=== PATIENT | female | born 1970 | race African-American/Black ===

== ENCOUNTER 2016-03-02 12:56 | Emergency (ER) | payer MEDICAID ==
[2016-03-02 12:56] VITALS: BMI 26.4
[2016-03-02] MEDS ORDERED: SODIUM CHLORIDE 0.9% 10 ML FLUSH FLUSH PRN (13:00)
[2016-03-02] MEDS ORDERED: NS 1,000 ML IV ONE (13:00)
--- NOTE | 2016-03-02 13:02 | EDPRACDOC ---
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 PT CANNOT GIVE HX <Jerry Marie - Last Filed: 03/02/16 14:31> - General Information Information Source: Patient Mode Of Arrival: Ambulance - History of Present Illness Onset: unknown Exact Onset of Symptoms: Unknown HPI: Pt sent from [facility] for abnormal labs. Pt c/o abd pain. Denies fever, n/v, changes in bowel or bladder, cp, sob. Pt seem confused when answering questions. Symptoms Started: Reports: Gradually Symptoms Description: Constant Weakness: Bilateral: Generalized Symptoms: Reports: Weak Symptom Severity: Reports: Bedridden, Unable to performs ADL's <Dariana Sheffield - Last Filed: 03/02/16 17:56> <Hailee Nicolas - Last Filed: 03/02/16 18:14> - General Information Stated Complaint: ABNORMAL LABS Time Seen by Provider: 03/02/16 12:58 Home Medications: Home Medications Aspirin [Ecotrin] 81 mg PO DAILY 02/13/16 Baclofen 10 mg PO TID 02/13/16 Divalproex Sodium [Depakote] 500 mg PO BID 02/13/16 Fluoxetine HCl [Prozac] 20 mg PO 0900 02/13/16 Gabapentin [Neurontin] 300 mg PO TID 02/13/16 Lacosamide [Vimpat] 200 mg PO BID 02/13/16 Lorazepam [Ativan] 0.5 mg TUBE Q6H PRN 02/13/16 Polyethylene Glycol 3350 [Miralax] 17 gm PO DAILY 02/13/16 Polyvinyl Alcohol [Artificial Tears] 1 drop OU .PRN PRN 02/13/16 Quetiapine Fumarate [Seroquel] 25 mg PO BID 02/13/16 Risperidone [Risperdal] 0.5 mg PO HS 02/13/16 Zonisamide 50 mg PO BID 02/13/16 Lorazepam [Ativan] 0.5 mg PO Q6H PRN 03/02/16 Oxycodone Immediate Release [Oxycodone Immediate Release (OxyIR)] 5 mg TUBE Q6H PRN 03/02/16 Warfarin Sodium [Coumadin] 8 mg PO .DAILY SEE COMMENTS 03/02/16 Allergies/Adverse Reactions: Allergies Allergy/AdvReac Type Severity Reaction Status Date / Time levetiracetam [From [facility]] Allergy Unknown Verified 03/02/16 13:43 ED Past Medical History - History Reviewed Yes Nurses notes reviewed and agree except as marked - Patient Medical History Cardiac History: Reports: Coronary Artery Disease, Cardiac Catheterization, Pacemaker, Valvular Heart Disease (RHEUMATIC MITRAL D/S S/P MECHANICAL VALVE REPLACEMENT) Psychological History: Reports: Depression Surgical History: Reports: Cardiac Catheterization, Other (MITRAL VALVE REPAIR) - Social Medical History Smoking Status: Heavy tobacco smoker (5 or more cigarettes/day or daily pipe/ cigar) <Dariana Sheffield - Last Filed: 03/02/16 17:56> EDM Review of Systems - Review of Systems ROS Unobtainable: Yes Review of systems cannot be obtained due to the patient's medical condition Constitutional: Weakness Respiratory: No Symptoms Reported. negative: Cough, Brassy Cough, Barky Cough, Shortness of Breath, Wheezing, Hemoptysis Cardiovascular: No Symptoms Reported. negative: Chest Pain, Palpitations, Syncope, Edema, Orthopnea, PND, Skin Mottling, Cyanosis Gastrointestinal: Pain Genitourinary: No Symptoms Reported. negative: Dysuria, Hematuria, Frequency, Discharge, Bleeding, Testicular Pain, <Dariana Sheffield - Last Filed: 03/02/16 17:56> - Physical Exam Last recorded Vital Signs: Last Vital Signs Temp 98 F 03/02/16 13:05 Pulse 74 03/02/16 14:03 Resp 18 03/02/16 14:03 BP 122/92 03/02/16 14:03 Pulse Ox 100 03/02/16 14:03 Oxygen Pulse Oxygen Saturation 100 O2 Device Room Air Oxygen Flow Rate Fraction of Inspired Oxygen ( FIO2) <Jerry Marie - Last Filed: 03/02/16 14:31> - Physical Exam Constitutional: Somnolent Oriented to: Person Last recorded Vital Signs: Oxygen Pulse Oxygen Saturation O2 Device Oxygen Flow Rate Fraction of Inspired Oxygen ( FIO2) - HEENT Head: Normal ( normocephalic) Eye Exam: Normal (PERRL, EOMI, Sclera white) Oropharynx: Membranes Dry Tympanic Membrane: Normal ENT EAC: Normal Nose: No Symptoms Reported (septum midline) Neck: Normal (FROM, trachea at midline) - Respiratory/Cardiovascular Respiratory: Normal - CTA (BBS clear to auscultation without adventitious sounds ) Cardiovascular: Normal (RRR without murmur, gallop or rub) - GI Auscultation: Normal (NABS) Palpation: Normal (Soft,No rebound or guarding, non distended) Tenderness: Diffuse, Mild - Musculoskeletal Back: Normal (Non-Tender) Extremities: Normal (Normal tone, Pulses 2+ No cyanosis or edema, FROM) - Integumentary Skin: Normal, Warm, Dry Lymphatics: Normal (no adenopathy) - Neurologic Memory Impaired: Unable to Test Motor Function: Unable to Test Cranial Nerve: Unable to Test Cerebellar: Unable to Test <Dariana Sheffield - Last Filed: 03/02/16 17:56> - Physical Exam Last recorded Vital Signs: Last Vital Signs Temp 98 F 03/02/16 13:05 Pulse 69 03/02/16 17:33 Resp 18 03/02/16 17:33 BP 117/81 03/02/16 17:33 Pulse Ox 99 03/02/16 17:33 Oxygen Pulse Oxygen Saturation 99 O2 Device Room Air Oxygen Flow Rate Fraction of Inspired Oxygen ( FIO2) <Hailee Nicolas - Last Filed: 03/02/16 18:14> - Results 03/02/16 13:30 03/02/16 13:30 WBC 6.6 xk/uL (3.8-10.8) 03/02/16 13:30 RBC 4.56 xM/uL (4.20-5.40) 03/02/16 13:30 Hgb 12.3 g/dL (12.0-16.0) 03/02/16 13:30 Hct 37.7 % (36-47) 03/02/16 13:30 MCV 83 fL (81-99) 03/02/16 13:30 MCH 27.1 pg (27-32) 03/02/16 13:30 MCHC 32.7 g/dl (33-36) L 03/02/16 13:30 RDW 18.3 % (11.5-14.5) H 03/02/16 13:30 Plt Count 270 xk/uL (130-400) 03/02/16 13:30 MPV 9.3 fL (7.4-10.4) 03/02/16 13:30 Neut % (Auto) 52.4 % (45-76) 03/02/16 13:30 Lymph % (Auto) 30.2 % (17-44) 03/02/16 13:30 [place] % (Auto) 13.0 % (3-10) H 03/02/16 13:30 Eos % (Auto) 3.3 % (0-5) 03/02/16 13:30 Baso % (Auto) 1.1 % (0-2) 03/02/16 13:30 Absolute Neuts (auto) 3.43 xk/uL (1.7-8.2) 03/02/16 13:30 Absolute Lymphs (auto) 1.98 xk/uL (0.65-4.75) 03/02/16 13:30 Lactic Acid 2.0 mEq/L (0.7-2.1) 03/02/16 13:30 Urine Color Yellow 03/02/16 14:07 Urine Clarity Clear 03/02/16 14:07 Urine pH 7.0 (5.0-8.0) 03/02/16 14:07 Ur Specific [place] 1.005 (1.003-1.035) 03/02/16 14:07 Urine Protein Neg (NEG/TRACE) 03/02/16 14:07 Urine Glucose (UA) Neg (NEGATIVE) 03/02/16 14:07 Urine Ketones Neg (NEGATIVE) 03/02/16 14:07 Urine Occult Blood Neg (NEG/TRACE) 03/02/16 14:07 Urine Nitrite Neg (NEGATIVE) 03/02/16 14:07 Urine Bilirubin Neg (NEGATIVE) 03/02/16 14:07 Urine Urobilinogen 2 MG/DL (0-1) H 03/02/16 14:07 Ur Leukocyte Esterase Trace (NEGATIVE) H 03/02/16 14:07 Urine RBC 0-2 (0-5) 03/02/16 14:07 Urine WBC 2-5 (0-5) 03/02/16 14:07 Ur Epithelial Cells Occ 03/02/16 14:07 Urine Mucus Occ (NEG/OCC) 03/02/16 14:07 Lab Results 03/02/16 03/02/16 03/02/16 14:07 13:30 13:30 WBC 6.6 RBC 4.56 Hgb 12.3 Hct 37.7 MCV 83 MCH 27.1 MCHC 32.7 L RDW 18.3 H Plt Count 270 MPV 9.3 Neut % (Auto) 52.4 Lymph % (Auto) 30.2 [place] % (Auto) 13.0 H Eos % (Auto) 3.3 Baso % (Auto) 1.1 Absolute Neuts (auto) 3.43 Absolute Lymphs (auto) 1.98 Lactic Acid 2.0 Urine Color Yellow Urine Clarity Clear Urine pH 7.0 Ur Specific [place] 1.005 Urine Protein Neg Urine Glucose (UA) Neg Urine Ketones Neg Urine Occult Blood Neg Urine Nitrite Neg Urine Bilirubin Neg Urine Urobilinogen 2 H Ur Leukocyte Esterase Trace H Urine RBC 0-2 Urine WBC 2-5 Ur Epithelial Cells Occ Urine Mucus Occ <Jerry Marie - Last Filed: 03/02/16 14:31> - Differential Diagnosis Anemia, Dehydration, Dysrhythmia, Electrolyte disorder, Hypoglycemia - Results 03/02/16 13:30 03/02/16 13:30 - EKG EKG #1 EKG Time: 13:05 Rate: bpm: 71 [place]: Normal Rhythm: NSR Block: None ST: Normal - Diagnostic Imaging Chest Image interpreted by: Radiologist IMPRESSION: Hypoinflation without acute cardiopulmonary disease. Abdomen Image interpreted by: Radiologist IMPRESSION: Contracted gallbladder with probable mild adenomyosis will. No definite gallstones identified. No evidence of biliary ductal dilatation. 3 cm hypoechoic mass in posterior right hepatic lobe. Differential diagnosis includes focal fatty sparing as well as hepatic neoplasm. Consider abdomen MRI without and with contrast for further characterization. CT: IMPRESSION: Percutaneous gastrostomy tube in adequate position. Possible mild gastric wall edema which may be seen with gastritis. 6 mm gallstone. No additional CT evidence to suggest cholecystitis. 2.4 cm well-defined oval hyperdense mass over the right lobe of the liver. This may represent an atypical hemangioma, adenoma, FNH or less likely malignancy. Recommend MRI of the abdomen on elective basis for further evaluation. <Dariana Sheffield - Last Filed: 03/02/16 17:56> - Results 03/02/16 13:30 03/02/16 13:30 WBC 6.6 xk/uL (3.8-10.8) 03/02/16 13:30 RBC 4.56 xM/uL (4.20-5.40) 03/02/16 13:30 Hgb 12.3 g/dL (12.0-16.0) 03/02/16 13:30 Hct 37.7 % (36-47) 03/02/16 13:30 MCV 83 fL (81-99) 03/02/16 13:30 MCH 27.1 pg (27-32) 03/02/16 13:30 MCHC 32.7 g/dl (33-36) L 03/02/16 13:30 RDW 18.3 % (11.5-14.5) H 03/02/16 13:30 Plt Count 270 xk/uL (130-400) 03/02/16 13:30 MPV 9.3 fL (7.4-10.4) 03/02/16 13:30 Neut % (Auto) 52.4 % (45-76) 03/02/16 13:30 Lymph % (Auto) 30.2 % (17-44) 03/02/16 13:30 [place] % (Auto) 13.0 % (3-10) H 03/02/16 13:30 Eos % (Auto) 3.3 % (0-5) 03/02/16 13:30 Baso % (Auto) 1.1 % (0-2) 03/02/16 13:30 Absolute Neuts (auto) 3.43 xk/uL (1.7-8.2) 03/02/16 13:30 Absolute Lymphs (auto) 1.98 xk/uL (0.65-4.75) 03/02/16 13:30 PT 112.8 SEC (9.2-11.2) H 03/02/16 13:30 INR 10.7 H* 03/02/16 13:30 APTT 70.2 SEC (22-35) H 03/02/16 13:30 Sodium 141 mEq/L (137-146) 03/02/16 13:30 Potassium 4.9 mEq/L (3.5-5.1) 03/02/16 13:30 Chloride 103 mEq/L (98-107) 03/02/16 13:30 Carbon Dioxide 28 mMOL/L (22-33) 03/02/16 13:30 Anion Gap 15 mEq/L (8-16) 03/02/16 13:30 BUN 10 MG/DL (7-17) 03/02/16 13:30 Creatinine 0.60 MG/DL (0.52-1.04) 03/02/16 13:30 Estimated GFR (MDRD) > 60 mL/min (>=60) 03/02/16 13:30 Glucose 82 MG/DL (70-99) 03/02/16 13:30 Calculated Osmolality 269 MOs/Kg (270-290) L 03/02/16 13:30 Lactic Acid 2.0 mEq/L (0.7-2.1) 03/02/16 13:30 Calcium 9.5 MG/DL (8.4-10.2) 03/02/16 13:30 Corrected Calcium 9.7 MG/DL (8.4-10.2) 03/02/16 13:30 Total Bilirubin 1.5 MG/DL (0.2-1.3) H 03/02/16 13:30 AST 1207 IU/L (14-36) H 03/02/16 13:30 ALT 1659 IU/L (9-52) H 03/02/16 13:30 Alkaline Phosphatase 658 IU/L (38-126) H 03/02/16 13:30 Creatine Kinase 141 IU/L (30-134) H 03/02/16 13:30 CK-MB (CK-2) 0.9 ng/mL (0-4.5) 03/02/16 13:30 Troponin I 0.01 ng/mL (<.04) 03/02/16 16:48 Total Protein 8.2 G/DL (6.3-8.2) 03/02/16 13:30 Albumin 3.8 G/DL (3.5-5.0) 03/02/16 13:30 Lipase 61 U/L (23-300) 03/02/16 13:30 Urine Color Yellow 03/02/16 14:07 Urine Clarity Clear 03/02/16 14:07 Urine pH 7.0 (5.0-8.0) 03/02/16 14:07 Ur Specific [place] 1.005 (1.003-1.035) 03/02/16 14:07 Urine Protein Neg (NEG/TRACE) 03/02/16 14:07 Urine Glucose (UA) Neg (NEGATIVE) 03/02/16 14:07 Urine Ketones Neg (NEGATIVE) 03/02/16 14:07 Urine Occult Blood Neg (NEG/TRACE) 03/02/16 14:07 Urine Nitrite Neg (NEGATIVE) 03/02/16 14:07 Urine Bilirubin Neg (NEGATIVE) 03/02/16 14:07 Urine Urobilinogen 2 MG/DL (0-1) H 03/02/16 14:07 Ur Leukocyte Esterase Trace (NEGATIVE) H 03/02/16 14:07 Urine RBC 0-2 (0-5) 03/02/16 14:07 Urine WBC 2-5 (0-5) 03/02/16 14:07 Ur Epithelial Cells Occ 03/02/16 14:07 Urine Mucus Occ (NEG/OCC) 03/02/16 14:07 Valproic Acid 91.0 MCG/ML (50-100) 03/02/16 13:30 Lab Results 03/02/16 03/02/16 03/02/16 16:48 14:07 13:30 WBC RBC Hgb Hct MCV MCH MCHC RDW Plt Count MPV Neut % (Auto) Lymph % (Auto) [place] % (Auto) Eos % (Auto) Baso % (Auto) Absolute Neuts (auto) Absolute Lymphs (auto) PT INR APTT Sodium Potassium Chloride Carbon Dioxide Anion Gap BUN Creatinine Estimated GFR (MDRD) Glucose Calculated Osmolality Lactic Acid Calcium Corrected Calcium Total Bilirubin AST ALT Alkaline Phosphatase Creatine Kinase CK-MB (CK-2) Troponin I 0.01 Total Protein Albumin Lipase Urine Color Yellow Urine Clarity Clear Urine pH 7.0 Ur Specific [place] 1.005 Urine Protein Neg Urine Glucose (UA) Neg Urine Ketones Neg Urine Occult Blood Neg Urine Nitrite Neg Urine Bilirubin Neg Urine Urobilinogen 2 H Ur Leukocyte Esterase Trace H Urine RBC 0-2 Urine WBC 2-5 Ur Epithelial Cells Occ Urine Mucus Occ Valproic Acid 91.0 03/02/16 03/02/16 03/02/16 13:30 13:30 13:30 WBC 6.6 RBC 4.56 Hgb 12.3 Hct 37.7 MCV 83 MCH 27.1 MCHC 32.7 L RDW 18.3 H Plt Count 270 MPV 9.3 Neut % (Auto) 52.4 Lymph % (Auto) 30.2 [place] % (Auto) 13.0 H Eos % (Auto) 3.3 Baso % (Auto) 1.1 Absolute Neuts (auto) 3.43 Absolute Lymphs (auto) 1.98 PT 112.8 H INR 10.7 H* APTT 70.2 H Sodium Potassium Chloride Carbon Dioxide Anion Gap BUN Creatinine Estimated GFR (MDRD) Glucose Calculated Osmolality Lactic Acid 2.0 Calcium Corrected Calcium Total Bilirubin AST ALT Alkaline Phosphatase Creatine Kinase CK-MB (CK-2) Troponin I Total Protein Albumin Lipase Urine Color Urine Clarity Urine pH Ur Specific [place] Urine Protein Urine Glucose (UA) Urine Ketones Urine Occult Blood Urine Nitrite Urine Bilirubin Urine Urobilinogen Ur Leukocyte Esterase Urine RBC Urine WBC Ur Epithelial Cells Urine Mucus Valproic Acid 03/02/16 13:30 WBC RBC Hgb Hct MCV MCH MCHC RDW Plt Count MPV Neut % (Auto) Lymph % (Auto) [place] % (Auto) Eos % (Auto) Baso % (Auto) Absolute Neuts (auto) Absolute Lymphs (auto) PT INR APTT Sodium 141 Potassium 4.9 Chloride 103 Carbon Dioxide 28 Anion Gap 15 BUN 10 Creatinine 0.60 Estimated GFR (MDRD) > 60 Glucose 82 Calculated Osmolality 269 L Lactic Acid Calcium 9.5 Corrected Calcium 9.7 Total Bilirubin 1.5 H AST 1207 H ALT 1659 H Alkaline Phosphatase 658 H Creatine Kinase 141 H CK-MB (CK-2) 0.9 Troponin I 0.01 Total Protein 8.2 Albumin 3.8 Lipase 61 Urine Color Urine Clarity Urine pH Ur Specific [place] Urine Protein Urine Glucose (UA) Urine Ketones Urine Occult Blood Urine Nitrite Urine Bilirubin Urine Urobilinogen Ur Leukocyte Esterase Urine RBC Urine WBC Ur Epithelial Cells Urine Mucus Valproic Acid <Hailee Nicolas - Last Filed: 03/02/16 18:14> <Jerry Marie - Last Filed: 03/02/16 14:31> Decision Time to Discharge: 17:56 - Departure Disposition: Home Education/Counseling Given To: Patient, Family Member Education/Counseling Given Regarding: Diagnosis, Treatment, Follow Up <Dariana Sheffield - Last Filed: 03/02/16 17:56> <Hailee Nicolas - Last Filed: 03/02/16 18:14> - Departure Condition: Stable Final Diagnosis: Supratherapeutic INR, Liver mass, right lobe, Elevated liver enzymes Instructions: Elevated INR (ED), Acute Abdominal Pain (ED) Referrals: Carloz Jones MD [Primary Care Provider] - One Week Additional Instructions: Hold Coumadin x 2 days. Follow up with Personal MD for further evaluation of liver mass. Return for worse or different symptoms.
[2016-03-02 13:40] VITALS: TEMP 98
[2016-03-02 13:48] LABS: AUTOMATED BASOPHIL 1.1 % (0-2); AUTOMATED EOSINOPHIL 3.3 % (0-5); AUTOMATED LYMPH 30.2 % (17-44); AUTOMATED NEUTROPHIL 52.4 % (45-76); MPV 9.3 fL (7.4-10.4)
[2016-03-02 13:57] LABS: BLOOD UREA NITROGEN 10 MG/DL (7-17); CALC CORRECTED 9.7 MG/DL (8.4-10.2); CALCIUM 9.5 MG/DL (8.4-10.2); CALCULATED OSMOLALITY 269 MOs/Kg (270-290); CHLORIDE 103 mEq/L (98-107); CPK TOTAL WITH POSSIBLE MB 141 IU/L (30-134); GLUCOSE 82 MG/DL (70-99); SODIUM LEVEL 141 mEq/L (137-146); TOTAL PROTEIN 8.2 G/DL (6.3-8.2)
--- NOTE | 2016-03-02 14:00 | DIRPT ---
CLINICAL DATA: Sepsis. Abdominal pain. Altered mental status. EXAM: PORTABLE CHEST 1 VIEW COMPARISON: 07/07/2015 FINDINGS: Left-sided pacemaker and prosthetic heart valve unchanged. Lungs are hypoinflated without consolidation or effusion. Cardiomediastinal silhouette is within normal. Suggestion of a gastrostomy tube over the left mid abdomen. Remainder of the exam is unchanged. IMPRESSION: Hypoinflation without acute cardiopulmonary disease. Electronically Signed By: Gomez Cisneros M.D. On: 03/02/2016 13:58
[2016-03-02 14:10] LABS: PARTIAL THROMB. TIME 70.2 SEC (22-35)
[2016-03-02 14:23] LABS: LEUKOCYTES/URINE TRACE (NEGATIVE); NITRITE/URINE NEG (NEGATIVE); RBC/URINE 0-2 (0-5); URINE OCCULT BLOOD NEG (NEG/TRACE)
[2016-03-02 14:36] LABS: PT-INR 10.7
[2016-03-02 14:53] LABS: CPKMB 0.9 ng/mL (0-4.5)
[2016-03-02] MEDS ORDERED: PHYTONADIONE 10 MG in NS 50 ML IV ONE (15:00)
--- NOTE | 2016-03-02 15:58 | DIRPT ---
CLINICAL DATA: Right upper quadrant pain for 1 month. EXAM: US ABDOMEN LIMITED - RIGHT UPPER QUADRANT COMPARISON: None. FINDINGS: Gallbladder: Contracted and and wall thickness measuring 4 mm. Several tiny echogenic foci seen with gallbladder wall near the neck, suspicious for adenomyosis. No evidence of gallbladder dilatation or pericholecystic fluid. No sonographic Luong's sign noted by manager flight. Common bile duct: Diameter: 4 mm, within normal limits. Liver: A hypoechoic mass is seen in the posterior right hepatic lobe measuring approximately 3.1 x 1.8 x 2.6 cm. This is nonspecific, and differential diagnosis includes focal fatty sparing as well as hepatic neoplasm. IMPRESSION: Contracted gallbladder with probable mild adenomyosis will. No definite gallstones identified. No evidence of biliary ductal dilatation. 3 cm hypoechoic mass in posterior right hepatic lobe. Differential diagnosis includes focal fatty sparing as well as hepatic neoplasm. Consider abdomen MRI without and with contrast for further characterization. Electronically Signed By: Sriram Garcia M.D. On: 03/02/2016 15:56
[2016-03-02] MEDS ORDERED: Pharmacy Review for Metformin - IV Contrast Given SCH (16:00)
[2016-03-02 17:34] VITALS: PULSE 69
--- NOTE | 2016-03-02 17:54 | DIRPT ---
CLINICAL DATA: Abnormal gallbladder ultrasound with elevated LFTs. Right upper quadrant pain. EXAM: CT ABDOMEN AND PELVIS WITH CONTRAST TECHNIQUE: Multidetector CT imaging of the abdomen and pelvis was performed using the standard protocol following bolus administration of intravenous contrast. CONTRAST: 100 mL Isovue 370 IV. COMPARISON: Right upper quadrant ultrasound 03/02/[address] 08/03/2014 FINDINGS: Lung bases are within normal. There is mild cardiomegaly. Pacemaker leads present over the heart as well as evidence of prosthetic mitral valve. Abdominal images demonstrate single 6 mm dependent density within the gallbladder likely a stone. No adjacent inflammatory changes. Pancreas is within normal. There is a well-defined oval 2.4 cm hyperdense mass over the posterior segment of the right lobe of the liver as this was noted to be hypoechoic by ultrasound. Remainder of the liver is within normal. The spleen and adrenal glands are within normal. Percutaneous gastrostomy tube is in adequate position. Also mild edema of the gastric wall. Kidneys are normal size without hydronephrosis or nephrolithiasis. There is mild calcified plaque over the abdominal aorta and iliac arteries. Appendix is normal. Mild to moderate fecal retention throughout the colon. Small bowel is within normal. Mesentery is normal. There is no free fluid or free peritoneal air. Few small periaortic lymph nodes with the largest measuring 9 mm in the left periaortic region. Pelvic images demonstrate the bladder, uterus, ovaries and rectum to be within normal. No free pelvic fluid. Bones and soft tissues unremarkable. IMPRESSION: Percutaneous gastrostomy tube in adequate position. Possible mild gastric wall edema which may be seen with gastritis. 6 mm gallstone. No additional CT evidence to suggest cholecystitis. 2.4 cm well-defined oval hyperdense mass over the right lobe of the liver. This may represent an atypical hemangioma, adenoma, FNH or less likely malignancy. Recommend MRI of the abdomen on elective basis for further evaluation. Electronically Signed By: Gomez Cisneros M.D. On: 03/02/2016 17:51
[2016-03-02 18:30] VITALS: BP 127/79
== END 2016-03-02 18:58 | disposition home or self-care (01) ==
LOC: ED 12:56
DX: R74.8 Abnormal levels of other serum enzymes (principal); Z79.01 Long term (current) use of anticoagulants; R16.0 Hepatomegaly, not elsewhere classified; I25.10 Atherosclerotic heart disease of native coronary artery without angina pectoris; F32.9 Major depressive disorder, single episode, unspecified; F17.200 Nicotine dependence, unspecified, uncomplicated; Z95.2 Presence of prosthetic heart valve; Z95.0 Presence of cardiac pacemaker; Z79.899 Other long term (current) drug therapy
CPT/HCPCS: 36415; 71010; 74177; 76705; 80053; 80074; 80164; 81001; 82550; 82553; 83605; 83690; 84484; 85025; 85610; 85730; 87040; 87086; 93005; 96361; 96365; 99284; A9698; J3430; J7030

== ENCOUNTER 2016-03-06 19:07 | Observation (INO) | payer MEDICAID ==
[2016-03-06 19:08] VITALS: BMI 26.4
[2016-03-06 19:52] LABS: AUTOMATED BASOPHIL 1.6 % (0-2); AUTOMATED LYMPH 30.6 % (17-44); AUTOMATED MONOCYTE 11.6 % (3-10); AUTOMATED NEUTROPHIL 54.2 % (45-76); MPV 9.6 fL (7.4-10.4)
[2016-03-06 20:01] LABS: PARTIAL THROMB. TIME 29.1 SEC (22-35); PT-INR 1.4
[2016-03-06 20:04] LABS: BLOOD UREA NITROGEN 16 MG/DL (7-17); CALCIUM 9.4 MG/DL (8.4-10.2); CALCULATED OSMOLALITY 266 MOs/Kg (270-290); CHLORIDE 102 mEq/L (98-107); GLUCOSE 87 MG/DL (70-99); SODIUM LEVEL 138 mEq/L (137-146)
--- NOTE | 2016-03-06 20:24 | DIRPT ---
CLINICAL DATA: Unwitnessed fall. EXAM: CHEST 2 VIEW COMPARISON: 03/02/2016 FINDINGS: Left pacer remains in place, unchanged. Prior valve replacement. Mild cardiomegaly. No confluent opacities, effusions or edema. No acute bony abnormality. IMPRESSION: Cardiomegaly. No active disease. Electronically Signed By: Saúl Mccoy M.D. On: 03/06/2016 20:21
--- NOTE | 2016-03-06 20:24 | DIRPT ---
CLINICAL DATA: Pain following fall EXAM: PELVIS - 1-2 VIEW COMPARISON: None. FINDINGS: There is no evidence of pelvic fracture or dislocation. Joint spaces appear intact. No erosive change. IMPRESSION: No fracture or dislocation. No apparent arthropathy. Electronically Signed By: Murtaza Irby III, M.D. On: 03/06/2016 20:22
--- NOTE | 2016-03-06 20:34 | EDPRACDOC ---
[id number] - History of Present Illness Onset: today Exact Onset of Symptoms: Unknown HPI: PT PRESENTS WITH PERSISTENT ALTERED MENTAL STATUS SINCE YESTERDAY. HAD SEIZURE YESTERDAY MORNING AND GIVEN ATIVAN TO STOP IT. SINCE SHE HAS BEEN ALTERED. RECENTLY SHE WAS SEEN IN ER FOR LAB ABNORMALITIES WITH MARKEDLY ELEVATED INR AND LIVER ENZYMES. FAMILY AT BEDSIDE REPORTS SHE IS USUALLY ABLE TO CONVERSE SOME BUT HAS BEEN NONVERBAL SINCE YESTERDAY. Symptoms Currently: Reports: Still Present Altered Quality: Reports: Decreased Alertness, Change in Behavior Altered Severity: Reports: Moderate, Unable to care for self <Dean Mon - Last Filed: 03/09/16 22:17> - General Information Chief Complaint: Altered Mental Status Stated Complaint: AMS Time Seen by Provider: 03/06/16 19:26 Home Medications: Home Medications Aspirin [Ecotrin] 81 mg PO DAILY 02/13/16 Baclofen 10 mg PO TID 02/13/16 Divalproex Sodium [Depakote] 500 mg PO BID 02/13/16 Fluoxetine HCl [Prozac] 20 mg PO 0900 02/13/16 Gabapentin [Neurontin] 300 mg PO TID 02/13/16 Lacosamide [Vimpat] 200 mg PO BID 02/13/16 Lorazepam [Ativan] 0.5 mg TUBE Q6H PRN 02/13/16 Polyethylene Glycol 3350 [Miralax] 17 gm PO DAILY 02/13/16 Polyvinyl Alcohol [Artificial Tears] 1 drop OU .PRN PRN 02/13/16 Quetiapine Fumarate [Seroquel] 25 mg PO BID 02/13/16 Risperidone [Risperdal] 0.5 mg PO HS 02/13/16 Zonisamide 50 mg PO BID 02/13/16 Lorazepam [Ativan] 0.5 mg PO Q6H PRN 03/02/16 Oxycodone Immediate Release [Oxycodone Immediate Release (OxyIR)] 5 mg TUBE Q6H PRN 03/02/16 Warfarin Sodium [Coumadin] 8 mg PO .DAILY SEE COMMENTS 03/02/16 Allergies/Adverse Reactions: Allergies Allergy/AdvReac Type Severity Reaction Status Date / Time levetiracetam [From 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 No <Dean Mon - Last Filed: 03/09/16 22:17> ED Past Medical History - History Reviewed Yes Nurses notes reviewed and agree except as marked - Patient Medical History Neurological History: Reports: Seizures Cardiac History: Reports: Coronary Artery Disease, Cardiac Catheterization, Pacemaker, Valvular Heart Disease (RHEUMATIC MITRAL D/S S/P MECHANICAL VALVE REPLACEMENT) Psychological History: Reports: Depression Surgical History: Reports: Cardiac Catheterization, Other (MITRAL VALVE REPAIR) Comment Only: Hysterectomy (unknown) - Social Medical History Smoking Status: Current status unknown Lives In: Group Home Facility <Dean Mon - Last Filed: 03/09/16 22:17> EDM Review of Systems - Review of Systems ROS Unobtainable: Yes Review of systems cannot be obtained due to the patient's medical condition <Dean Mon - Last Filed: 03/09/16 22:17> - Physical Exam Last recorded Vital Signs: Last Vital Signs Temp 98.0 F 03/08/16 07:25 Pulse 72 03/08/16 07:25 Resp 18 03/08/16 07:25 BP 103/75 03/08/16 07:25 Pulse Ox 99 03/08/16 07:25 Oxygen Pulse Oxygen Saturation 100 O2 Device Room Air Oxygen Flow Rate Fraction of Inspired Oxygen ( FIO2) <Hailee Nicolas - Last Filed: 03/08/16 10:41> - Physical Exam Constitutional: Other (ABLE TO FOLLOW WITH EYES BUT REMAINS NONVERBAL AND NONCOMMUNICATIVE.) Oriented to: Unable to Test Last recorded Vital Signs: Last Vital Signs Temp 98.5 F 03/06/16 19:12 Pulse 72 03/06/16 19:47 Resp 20 03/06/16 19:47 BP 112/75 03/06/16 19:47 Pulse Ox 97 03/06/16 19:47 Oxygen Pulse Oxygen Saturation 97 O2 Device Room Air Oxygen Flow Rate Fraction of Inspired Oxygen ( FIO2) - HEENT Head: negative: Deformity, Laceration Eye Exam: negative: Conjunctival Injection, Pale Conjunctiva Oropharynx: negative: Membranes Dry Nose: negative: Congestion, Discharge Neck: negative: Limited ROM - Respiratory/Cardiovascular Respiratory: Normal - CTA. negative: Accessory Muscle Use, Diminished, Tachypnea Cardiovascular: negative: Bradycardia, Tachycardia, Irregular - GI Auscultation: Normal Palpation: Normal Tenderness: Non tender - Musculoskeletal Extremities: Radial Pulse (PALPABLE) - Integumentary Skin: Warm, Dry. negative: Rash - Neurologic Memory Impaired: Unable to Test Motor Function: Unable to Test <ElieserKareemDean C - Last Filed: 03/09/16 22:17> - Results 03/08/16 06:32 03/08/16 06:32 WBC 5.2 xk/uL (3.8-10.8) 03/08/16 06:32 RBC 4.40 xM/uL (4.20-5.40) 03/08/16 06:32 Hgb 11.9 g/dL (12.0-16.0) L 03/08/16 06:32 Hct 36.4 % (36-47) 03/08/16 06:32 MCV 83 fL (81-99) 03/08/16 06:32 MCH 27.1 pg (27-32) 03/08/16 06:32 MCHC 32.8 g/dl (33-36) L 03/08/16 06:32 RDW 19.2 % (11.5-14.5) H 03/08/16 06:32 Plt Count 219 xk/uL (130-400) 03/08/16 06:32 MPV 9.0 fL (7.4-10.4) 03/08/16 06:32 Neut % (Auto) 43.3 % (45-76) L 03/08/16 06:32 Lymph % (Auto) 36.0 % (17-44) 03/08/16 06:32 [place] % (Auto) 15.6 % (3-10) H 03/08/16 06:32 Eos % (Auto) 4.2 % (0-5) 03/08/16 06:32 Baso % (Auto) 0.9 % (0-2) 03/08/16 06:32 Absolute Neuts (auto) 2.24 xk/uL (1.7-8.2) 03/08/16 06:32 Absolute Lymphs (auto) 1.87 xk/uL (0.65-4.75) 03/08/16 06:32 PT 16.6 SEC (9.2-11.2) H 03/08/16 06:32 INR 1.6 03/08/16 06:32 APTT 32.9 SEC (22-35) 03/08/16 06:32 Sodium 140 mEq/L (137-146) 03/08/16 06:32 Potassium 4.1 mEq/L (3.5-5.1) 03/08/16 06:32 Chloride 105 mEq/L (98-107) 03/08/16 06:32 Carbon Dioxide 26 mMOL/L (22-33) 03/08/16 06:32 Anion Gap 13 mEq/L (8-16) 03/08/16 06:32 BUN 10 MG/DL (7-17) 03/08/16 06:32 Creatinine 0.70 MG/DL (0.52-1.04) 03/08/16 06:32 Estimated GFR (MDRD) > 60 mL/min (>=60) 03/08/16 06:32 Glucose 93 MG/DL (70-99) 03/08/16 06:32 Calculated Osmolality 268 MOs/Kg (270-290) L 03/08/16 06:32 Calcium 9.4 MG/DL (8.4-10.2) 03/08/16 06:32 Corrected Calcium 10.2 MG/DL (8.4-10.2) 03/08/16 06:32 Total Bilirubin 5.5 MG/DL (0.2-1.3) H 03/08/16 06:32 AST 1336 IU/L (14-36) H 03/08/16 06:32 ALT 1502 IU/L (9-52) H 03/08/16 06:32 Alkaline Phosphatase 640 IU/L (38-126) H 03/08/16 06:32 Ammonia 23.0 umol/L (9.0-30.0) 03/06/16 20:40 Troponin I < 0.01 ng/mL (<.04) 03/07/16 01:01 Total Protein 7.5 G/DL (6.3-8.2) 03/08/16 06:32 Albumin 3.2 G/DL (3.5-5.0) L 03/08/16 06:32 Lipase 78 U/L (23-300) 03/08/16 06:32 Urine Color Bright yellow 03/07/16 01:35 Urine Clarity Sl hzy 03/07/16 01:35 Urine pH 6.0 (5.0-8.0) 03/07/16 01:35 Ur Specific [place] 1.020 03/07/16 01:35 Urine Protein Neg (NEG/TRACE) 03/07/16 01:35 Urine Glucose (UA) Neg (NEGATIVE) 03/07/16 01:35 Urine Ketones Neg (NEGATIVE) 03/07/16 01:35 Urine Occult Blood Neg (NEG/TRACE) 03/07/16 01:35 Urine Nitrite Neg (NEGATIVE) 03/07/16 01:35 Urine Bilirubin 2+ (NEGATIVE) H 03/07/16 01:35 Urine Urobilinogen 8 MG/DL (0-1) H 03/07/16 01:35 Ur Leukocyte Esterase Neg (NEGATIVE) 03/07/16 01:35 Urine RBC 0-2 (0-5) 03/07/16 01:35 Urine WBC 2-5 (0-5) 03/07/16 01:35 Ur Epithelial Cells Occ 03/07/16 01:35 Urine Bacteria Few (NEG/FEW) 03/07/16 01:35 Urine Mucus Sm amt (NEG/OCC) 03/07/16 01:35 Lab Results 03/08/16 03/08/16 03/08/16 06:32 06:32 06:32 WBC 5.2 RBC 4.40 Hgb 11.9 L Hct 36.4 MCV 83 MCH 27.1 MCHC 32.8 L RDW 19.2 H Plt Count 219 MPV 9.0 Neut % (Auto) 43.3 L Lymph % (Auto) 36.0 [place] % (Auto) 15.6 H Eos % (Auto) 4.2 Baso % (Auto) 0.9 Absolute Neuts (auto) 2.24 Absolute Lymphs (auto) 1.87 PT 16.6 H INR 1.6 APTT 32.9 Sodium 140 Potassium 4.1 Chloride 105 Carbon Dioxide 26 Anion Gap 13 BUN 10 Creatinine 0.70 Estimated GFR (MDRD) > 60 Glucose 93 Calculated Osmolality 268 L Calcium 9.4 Corrected Calcium 10.2 Total Bilirubin 5.5 H AST 1336 H ALT 1502 H Alkaline Phosphatase 640 H Ammonia Troponin I Total Protein 7.5 Albumin 3.2 L Lipase 78 Urine Color Urine Clarity Urine pH Ur Specific [place] Urine Protein Urine Glucose (UA) Urine Ketones Urine Occult Blood Urine Nitrite Urine Bilirubin Urine Urobilinogen Ur Leukocyte Esterase Urine RBC Urine WBC Ur Epithelial Cells Urine Bacteria Urine Mucus 03/07/16 03/07/16 03/07/16 05:34 05:34 01:35 WBC 4.8 RBC 4.28 Hgb 11.8 L Hct 35.5 L MCV 83 MCH 27.7 MCHC 33.4 RDW 19.4 H Plt Count 252 MPV 9.1 Neut % (Auto) Lymph % (Auto) [place] % (Auto) Eos % (Auto) Baso % (Auto) Absolute Neuts (auto) Absolute Lymphs (auto) PT INR APTT Sodium 140 Potassium 4.6 Chloride 105 Carbon Dioxide 25 Anion Gap 15 BUN 14 Creatinine 0.70 Estimated GFR (MDRD) > 60 Glucose 72 Calculated Osmolality 269 L Calcium 9.6 Corrected Calcium 10.1 Total Bilirubin 6.4 H AST 1708 H ALT 1763 H Alkaline Phosphatase 725 H Ammonia Troponin I Total Protein 8.1 Albumin 3.5 Lipase Urine Color Bright yellow Urine Clarity Sl hzy Urine pH 6.0 Ur Specific [place] 1.020 Urine Protein Neg Urine Glucose (UA) Neg Urine Ketones Neg Urine Occult Blood Neg Urine Nitrite Neg Urine Bilirubin 2+ H Urine Urobilinogen 8 H Ur Leukocyte Esterase Neg Urine RBC 0-2 Urine WBC 2-5 Ur Epithelial Cells Occ Urine Bacteria Few Urine Mucus Sm amt 03/07/16 03/06/16 03/06/16 01:01 22:15 20:40 WBC RBC Hgb Hct MCV MCH MCHC RDW Plt Count MPV Neut % (Auto) Lymph % (Auto) [place] % (Auto) Eos % (Auto) Baso % (Auto) Absolute Neuts (auto) Absolute Lymphs (auto) PT INR APTT Sodium Potassium Chloride Carbon Dioxide Anion Gap BUN Creatinine Estimated GFR (MDRD) Glucose Calculated Osmolality Calcium Corrected Calcium Total Bilirubin AST ALT Alkaline Phosphatase Ammonia 23.0 Troponin I < 0.01 < 0.01 Total Protein Albumin Lipase Urine Color Urine Clarity Urine pH Ur Specific [place] Urine Protein Urine Glucose (UA) Urine Ketones Urine Occult Blood Urine Nitrite Urine Bilirubin Urine Urobilinogen Ur Leukocyte Esterase Urine RBC Urine WBC Ur Epithelial Cells Urine Bacteria Urine Mucus 03/06/16 03/06/16 03/06/16 19:32 19:32 19:32 WBC 6.0 RBC 4.46 Hgb 12.3 Hct 36.4 MCV 82 MCH 27.5 MCHC 33.7 RDW 18.7 H Plt Count 252 MPV 9.6 Neut % (Auto) 54.2 Lymph % (Auto) 30.6 [place] % (Auto) 11.6 H Eos % (Auto) 2.0 Baso % (Auto) 1.6 Absolute Neuts (auto) 3.24 Absolute Lymphs (auto) 1.80 PT 14.5 H INR 1.4 APTT 29.1 Sodium 138 Potassium 4.4 Chloride 102 Carbon Dioxide 26 Anion Gap 14 BUN 16 Creatinine 0.60 Estimated GFR (MDRD) > 60 Glucose 87 Calculated Osmolality 266 L Calcium 9.4 Corrected Calcium 10.0 Total Bilirubin 5.8 H AST 1610 H ALT 1731 H Alkaline Phosphatase 627 H Ammonia Troponin I < 0.01 Total Protein 8.0 Albumin 3.4 L Lipase Urine Color Urine Clarity Urine pH Ur Specific [place] Urine Protein Urine Glucose (UA) Urine Ketones Urine Occult Blood Urine Nitrite Urine Bilirubin Urine Urobilinogen Ur Leukocyte Esterase Urine RBC Urine WBC Ur Epithelial Cells Urine Bacteria Urine Mucus - Additional Information Additional Information: WE ARE UNABLE TO GET AN MRI DUE TO PT'S PACEMAKER. PT D/W DR. MANUEL (HOSPITALIST). STILL NO ADMISSION UNLESS WE HAVE GI COVERAGE. WE STILL HAVE NO ED GI COVERAGE. I SPOKE WITH DR. STOUT () WHO IS UNABLE TO SEE PT. I SPOKE WITH DR. HERNANDEZ () WHO LOOKED AT PT'S CHART. HE THINKS THE PT DOES NOT HAVE A STONE IN HER CBD. HE THINKS SHE HAS CHOLESTATIC JAUNDICE RELATED TO HER DEPAKOTE. DUE TO THE PT'S MULTIPLE MEDICAL PROBLEMS, HE THINKS SHE NEEDS TERTIARY CARE. WE SPOKE WITH [facility] AGAIN TODAY, STILL WAITING FOR A BED. [facility] ALSO CALLED. NO BEDS. <Hailee Nicolas - Last Filed: 03/08/16 10:41> - Re-evaluation Re-evaluation 1 Re-evaluation Time: 22:[address] PENN, HOSPITALIST AT [facility], ACCEPTS TRANSFER TO HOSPITAL. CURRENTLY BEDS ARE FILLED AND HE EXPECTS TRANSFER SOMETIME IN THE MORNING. REQUESTS RESUMING PATIENTS COUMADIN AT [facility]. Re-evaluation 2 Re-evaluation Time: 16:04 UNABLE TO OBTAIN MRI DUE TO PACEMAKER. - Results 03/08/16 06:32 03/08/16 06:32 WBC 6.0 xk/uL (3.8-10.8) 03/06/16 19:32 RBC 4.46 xM/uL (4.20-5.40) 03/06/16 19:32 Hgb 12.3 g/dL (12.0-16.0) 03/06/16 19:32 Hct 36.4 % (36-47) 03/06/16 19:32 MCV 82 fL (81-99) 03/06/16 19:32 MCH 27.5 pg (27-32) 03/06/16 19:32 MCHC 33.7 g/dl (33-36) 03/06/16 19:32 RDW 18.7 % (11.5-14.5) H 03/06/16 19:32 Plt Count 252 xk/uL (130-400) 03/06/16 19:32 MPV 9.6 fL (7.4-10.4) 03/06/16 19:32 Neut % (Auto) 54.2 % (45-76) 03/06/16 19:32 Lymph % (Auto) 30.6 % (17-44) 03/06/16 19:32 [place] % (Auto) 11.6 % (3-10) H 03/06/16 19:32 Eos % (Auto) 2.0 % (0-5) 03/06/16 19:32 Baso % (Auto) 1.6 % (0-2) 03/06/16 19:32 Absolute Neuts (auto) 3.24 xk/uL (1.7-8.2) 03/06/16 19:32 Absolute Lymphs (auto) 1.80 xk/uL (0.65-4.75) 03/06/16 19:32 PT 14.5 SEC (9.2-11.2) H 03/06/16 19:32 INR 1.4 03/06/16 19:32 APTT 29.1 SEC (22-35) 03/06/16 19:32 Sodium 138 mEq/L (137-146) 03/06/16 19:32 Potassium 4.4 mEq/L (3.5-5.1) 03/06/16 19:32 Chloride 102 mEq/L (98-107) 03/06/16 19:32 Carbon Dioxide 26 mMOL/L (22-33) 03/06/16 19:32 Anion Gap 14 mEq/L (8-16) 03/06/16 19:32 BUN 16 MG/DL (7-17) 03/06/16 19:32 Creatinine 0.60 MG/DL (0.52-1.04) 03/06/16 19:32 Estimated GFR (MDRD) > 60 mL/min (>=60) 03/06/16 19:32 Glucose 87 MG/DL (70-99) 03/06/16 19:32 Calculated Osmolality 266 MOs/Kg (270-290) L 03/06/16 19:32 Calcium 9.4 MG/DL (8.4-10.2) 03/06/16 19:32 Corrected Calcium 10.0 MG/DL (8.4-10.2) 03/06/16 19:32 Total Bilirubin 5.8 MG/DL (0.2-1.3) H 03/06/16 19:32 AST 1610 IU/L (14-36) H 03/06/16 19:32 ALT 1731 IU/L (9-52) H 03/06/16 19:32 Alkaline Phosphatase 627 IU/L (38-126) H 03/06/16 19:32 Troponin I < 0.01 ng/mL (<.04) 03/06/16 19:32 Total Protein 8.0 G/DL (6.3-8.2) 03/06/16 19:32 Albumin 3.4 G/DL (3.5-5.0) L 03/06/16 19:32 Lab Results 03/06/16 03/06/16 03/06/16 19:32 19:32 19:32 WBC 6.0 RBC 4.46 Hgb 12.3 Hct 36.4 MCV 82 MCH 27.5 MCHC 33.7 RDW 18.7 H Plt Count 252 MPV 9.6 Neut % (Auto) 54.2 Lymph % (Auto) 30.6 [place] % (Auto) 11.6 H Eos % (Auto) 2.0 Baso % (Auto) 1.6 Absolute Neuts (auto) 3.24 Absolute Lymphs (auto) 1.80 PT 14.5 H INR 1.4 APTT 29.1 Sodium 138 Potassium 4.4 Chloride 102 Carbon Dioxide 26 Anion Gap 14 BUN 16 Creatinine 0.60 Estimated GFR (MDRD) > 60 Glucose 87 Calculated Osmolality 266 L Calcium 9.4 Corrected Calcium 10.0 Total Bilirubin 5.8 H AST 1610 H ALT 1731 H Alkaline Phosphatase 627 H Troponin I < 0.01 Total Protein 8.0 Albumin 3.4 L - EKG EKG #1 EKG Time: 19:38 -: Yes EKG interpreted by me Rate: bpm: 69 [place]: Normal Rhythm: NSR Block: None Hypertrophy: None ST: Normal <Dean Mon - Last Filed: 03/09/16 22:17> ED Critical Care Note - Critical Care Note Total Time (mins): 45 Comments: Due to the presence of and / or the risk of deterioration, my attendance to this patient required critical care time, including assessment/reassessment, documentation, ordering and interpreting ancillary studies, discussion with ED staff and consultants,patient and family, and excludes time spent on separately billable procedures. <Dean Mon - Last Filed: 03/09/16 22:17> <Hailee Nicolas - Last Filed: 03/08/16 10:41> - Departure Yes I personally saw and evaluated the patient. Disposition: Trans. to Other Hospital Decision to Transfer Time: 22:45 (DR. PENN, HOSPITALIST [facility] ACCEPTS) <Dean Mon - Last Filed: 03/09/16 22:17> - Departure Condition: Stable Final Diagnosis: Altered mental status, Transaminitis, Elevated bilirubin
--- NOTE | 2016-03-06 20:39 | DIRPT ---
CLINICAL DATA: Altered mental status with confusion and lethargy for 1 day. Fall 1 day prior EXAM: CT HEAD WITHOUT CONTRAST TECHNIQUE: Contiguous axial images were obtained from the base of the skull through the vertex without intravenous contrast. COMPARISON: February 13, 2016 FINDINGS: There is mild diffuse atrophy for age. There is no intracranial mass, hemorrhage, extra-axial fluid collection, or midline shift. Langley-white compartments appear normal. No acute infarct evident. The bony calvarium appears intact. Mastoid air cells are clear. No intraorbital lesions are appreciated in visualized regions. IMPRESSION: Mild diffuse atrophy for age. Study otherwise unremarkable. No intracranial mass, hemorrhage, or focal langley - white compartment lesions/acute appearing infarct. Electronically Signed By: Murtaza Irby III, M.D. On: 03/06/2016 20:36
[2016-03-06] MEDS ORDERED: POLYVINYL ALCOHOL OU PRN (22:27)
[2016-03-06] MEDS ORDERED: NS 1,000 ML IV ONE (22:29)
[2016-03-06] MEDS ORDERED: ARTIFICIAL TEARS OPH SOLN 15 ML OU PRN (22:59)
[2016-03-07] MEDS ORDERED: PIPERACILLIN AND TAZOBACTAM 4.5 GM in D5W 100 ML IV ONE (01:30)
[2016-03-07 01:44] LABS: LEUKOCYTES/URINE NEG (NEGATIVE); NITRITE/URINE NEG (NEGATIVE); URINE OCCULT BLOOD NEG (NEG/TRACE)
[2016-03-07 01:55] LABS: RBC/URINE 0-2 (0-5)
[2016-03-07 05:45] LABS: MPV 9.1 fL (7.4-10.4)
[2016-03-07 06:02] LABS: BLOOD UREA NITROGEN 14 MG/DL (7-17); CALC CORRECTED 10.1 MG/DL (8.4-10.2); CALCIUM 9.6 MG/DL (8.4-10.2); CALCULATED OSMOLALITY 269 MOs/Kg (270-290); CHLORIDE 105 mEq/L (98-107); GLUCOSE 72 MG/DL (70-99); SODIUM LEVEL 140 mEq/L (137-146); TOTAL PROTEIN 8.1 G/DL (6.3-8.2)
[2016-03-07] MEDS: GABAPENTIN 300 MG CAP PO SCH ×3 (06:27→22:12)
[2016-03-07] MEDS ORDERED: LACOSAMIDE 200 MG PO SCH (09:00)
[2016-03-07] MEDS: DIVALPROEX SODIUM 250 MG TAB PO SCH ×2 (09:02→22:11)
[2016-03-07] MEDS: QUETIAPINE FUMARATE 25 MG TAB PO SCH ×2 (09:03→22:12)
[2016-03-07] MEDS: PEG-ELECTROLYTE 17 GM PACK PO SCH (09:06)
[2016-03-07] MEDS: LACOSAMIDE 100 MG TAB PO SCH ×2 (09:24→22:17)
[2016-03-07] MEDS: WARFARIN 4 MG TAB PO SCH (19:41)
[2016-03-07] MEDS ORDERED: RISPERIDONE 0.5 MG TAB PO SCH (21:00)
[2016-03-08] MEDS: GABAPENTIN 300 MG CAP PO SCH ×2 (06:22→14:03)
[2016-03-08 06:42] LABS: AUTOMATED BASOPHIL 0.9 % (0-2); AUTOMATED EOSINOPHIL 4.2 % (0-5); AUTOMATED MONOCYTE 15.6 % (3-10); AUTOMATED NEUTROPHIL 43.3 % (45-76)
[2016-03-08 07:14] LABS: BLOOD UREA NITROGEN 10 MG/DL (7-17); CALC CORRECTED 10.2 MG/DL (8.4-10.2); CALCIUM 9.4 MG/DL (8.4-10.2); CALCULATED OSMOLALITY 268 MOs/Kg (270-290); CHLORIDE 105 mEq/L (98-107); GLUCOSE 93 MG/DL (70-99); SODIUM LEVEL 140 mEq/L (137-146); TOTAL PROTEIN 7.5 G/DL (6.3-8.2)
[2016-03-08 07:26] LABS: PARTIAL THROMB. TIME 32.9 SEC (22-35); PT-INR 1.6
[2016-03-08] MEDS: DIVALPROEX SODIUM 250 MG TAB PO SCH (08:30)
[2016-03-08] MEDS: LACOSAMIDE 100 MG TAB PO SCH (08:31)
[2016-03-08] MEDS: PEG-ELECTROLYTE 17 GM PACK PO SCH (08:31)
[2016-03-08] MEDS: QUETIAPINE FUMARATE 25 MG TAB PO SCH (08:31)
[2016-03-08] MEDS ORDERED: ZONISAMIDE 50 MG PO SCH (11:30)
[2016-03-08] MEDS: WARFARIN 4 MG TAB PO SCH (18:12)
[2016-03-08 19:03] VITALS: BP 113/75; PULSE 74; TEMP 98
== END 2016-03-08 19:40 | disposition short-term general hospital (02) ==
LOC: ED 19:07 → TUOBSINP 03-08 07:00
PROVIDERS: ADMIT Emergency Medicine; ATTEND Emergency Medicine
DX: R41.82 Altered mental status, unspecified (principal); R74.0 Nonspecific elevation of levels of transaminase and lactic acid dehydrogenase [LDH]; E80.6 Other disorders of bilirubin metabolism; I25.10 Atherosclerotic heart disease of native coronary artery without angina pectoris; R56.9 Unspecified convulsions; Z95.2 Presence of prosthetic heart valve; Z79.01 Long term (current) use of anticoagulants; Z95.0 Presence of cardiac pacemaker; Z79.899 Other long term (current) drug therapy
CPT/HCPCS: 36415; 70450; 71020; 72170; 80053; 81001; 82140; 83690; 84484; 85025; 85027; 85610; 85730; 87086; 93005; 96361; 96365; 99285; G0378; J2543; J3490; J7060